=== PATIENT | male | born 2005 | race Caucasian/White ===

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

== ENCOUNTER → 2025-08-13 | Outpatient (CLI) | payer OTHER ==
[~2025-08-13] MED LIST: BACT800T5 PO; CETI-24
== END ==
LOC: M PLAIMG 08:02
PROVIDERS: ATTEND Surgery
DX: K40.90 Unilateral inguinal hernia, without obstruction or gangrene, not specified as recurrent (principal)